=== PATIENT | male | born 1930 | race Caucasian/White ===

== ENCOUNTER → 2018-03-18 12:51 | Outpatient (CLI) | payer MEDICARE, BC | END | disposition home or self-care (01) | LOC: D.CT 12:51 | DX: R51 Headache (principal) ==

== ENCOUNTER 2018-12-22 19:25 | Inpatient (IN) | payer MEDICARE, BC ==
[2018-12-22] MEDS ORDERED: GLUCOPHAGE500 MG (19:36)
[2018-12-22] MEDS ORDERED: GLIMEPIRIDE1 MG (19:36)
[2018-12-22 19:59] LABS: BASOPHILS 0.5 % (0-2); EOSINOPHILS 4.7 % (0-7); HEMATOCRIT 39.1 % (42.0-54.0); HEMOGLOBIN 13.2 g/dL (13.5-17.5); IMMATURE GRANULOCYTES 0.3 % (0-5); LYMPHOCYTES 24.4 % (15-50); MCHC 33.8 g/dL (31.0-37.0); MCV 88.9 fL (80.0-100.0); MEAN PLATELET VOLUME 10.4 fL (7.4-10.4); MONOCYTES 5.3 % (2-11); NEUTROPHILS 64.8 % (40-80); PLATELET COUNT 202 10x3/uL (130-400); RDW 13.3 % (11.5-14.5); WBC 7.4 10x3/uL (4.8-10.8)
[2018-12-22 20:14] LABS: ALBUMIN 4.3 g/dL (3.4-5.0); ALKALINE PHOSPHATASE 107 U/L (46-116); ALT (SGPT) 26 U/L (10-68); BILIRUBIN - TOTAL 0.51 mg/dL (0.2-1.3); CALC OSMOLALITY 281 mosm/kg (275-300); CALCIUM 8.9 mg/dL (8.5-10.1); CARBON DIOXIDE 22.7 mmol/L (21.0-32.0); CHLORIDE - SERUM 100 mmol/L (98-107); CREATININE - SERUM 1.4 mg/dL (0.6-1.3); GLUCOSE 203 mg/dL (74-106); POTASSIUM - SERUM 4.6 mmol/L (3.5-5.1); SODIUM 136 mmol/L (136-145); UREA NITROGEN 25 mg/dL (7-18); eGFR NON AFRICAN AMERICAN 51 mL/min (90-120)
[2018-12-22 20:23] LABS: APPEARANCE CLEAR (CLEAR); BILIRUBIN NEGATIVE (NEGATIVE); COLOR YELLOW (YELLOW); GLUCOSE NEGATIVE (NEGATIVE); KETONE NEGATIVE (NEGATIVE); NITRITE NEGATIVE (NEGATIVE); PROTEIN NEGATIVE (NEGATIVE); UROBILINOGEN NORMAL (NORMAL)
[2018-12-22 20:26] LABS: CKMB 1.7 U/L (0.0-3.6); CREATINE KINASE 144 UL (21-232); PRO BNP 334 pg/mL (0-450); TROPONIN-I 0.052 ng/mL (0.000-0.060)
--- NOTE | 2018-12-22 22:34 | NUR ---
PT AMBULATED TO RESTROOM INDEPENDENTLY.
[2018-12-23 00:34] VITALS: BP 170/81; BMI 23.4
--- NOTE | 2018-12-23 07:35 | NUR ---
INITIAL ROUNDING ON THE PATIENT, HE IS AWAKE AND WATCHING TV IN BED, DRESSED IN PJ'S, CALL LIGHT IN REACH, DENIES PAIN.
[2018-12-23 09:39] VITALS: BP 141/72
[2018-12-23 12:39] LABS: CHOL - HDL RATIO 7.6 ratio (2.3-4.9); CHOLESTEROL, TOTAL 296 mg/dL (0-200); HDL CHOLESTEROL 39 mg/dL (32-96); TRIGLYCERIDE 416 mg/dL (30-200)
[2018-12-23 12:53] VITALS: BP 134/95
[2018-12-23 13:24] VITALS: BMI 23.4
--- NOTE | 2018-12-23 14:26 | NUR ---
Rehab Note- Acut Inpatient prescreen order received. The patient has an appropriate diagnosis for inpatient acute rehab, he is a new admit and is still having an acute workup. Will follow at this time. Thank you for this referral! Moraima Camacho RN Clinical Liaison, [facility] Rehab
[2018-12-23 16:57] VITALS: BP 124/51
--- NOTE | 2018-12-23 19:30 | NUR ---
PT LYING IN BED. CALL LIGHT IN REACH. PT DENIES NEEDS OR PAIN. BED IN LOW SIDE RAILS X2. PT CONFUSED BUT ALERT. LEAVING AT THIS TIME. BED ALARM ON. WILL CONTINUE TO MONITOR.
[2018-12-23 20:17] VITALS: BP 133/63
--- NOTE | 2018-12-23 23:18 | NUR ---
PT RESTING QUIETLY. CALL LIGHT IN REACH. NO SIGNS OF DISTRESS OR PAIN. WCTM
--- NOTE | 2018-12-24 04:34 | NUR ---
ASSISTED PT TO AND FROM BATHROOM. BACK IN BED. CALL LIGHT IN REACH. BED ALARM ON. DENIES FURTHER NEEDS. WCTM
[2018-12-24 04:44] VITALS: BP 146/81
[2018-12-24 07:08] LABS: BASOPHILS 0.3 % (0-2); EOSINOPHILS 3.6 % (0-7); HEMATOCRIT 38.9 % (42.0-54.0); HEMOGLOBIN 13.2 g/dL (13.5-17.5); IMMATURE GRANULOCYTES 0.3 % (0-5); LYMPHOCYTES 31.1 % (15-50); MCH 29.8 pg (26.0-34.0); MCHC 33.9 g/dL (31.0-37.0); MCV 87.8 fL (80.0-100.0); MEAN PLATELET VOLUME 10.2 fL (7.4-10.4); NEUTROPHILS 55.7 % (40-80); PLATELET COUNT 195 10x3/uL (130-400); RBC 4.43 10x6/uL (4.20-6.10); RDW 13.3 % (11.5-14.5); WBC 6.4 10x3/uL (4.8-10.8)
[2018-12-24 07:27] LABS: ALBUMIN 3.8 g/dL (3.4-5.0); ANION GAP 13.7 mmol/L (8-16); BILIRUBIN - TOTAL 0.56 mg/dL (0.2-1.3); CALCIUM 9.1 mg/dL (8.5-10.1); CARBON DIOXIDE 24.6 mmol/L (21.0-32.0); CREATININE - SERUM 1.2 mg/dL (0.6-1.3); POTASSIUM - SERUM 4.3 mmol/L (3.5-5.1)
--- NOTE | 2018-12-24 07:42 | NUR ---
PATIENT AWAKE AND WATCHING TV, CALL LIGHT IN HIS HAND, HE DENIES PAIN, NURO CHECK SHOWS NO CHANGES FROM YESTERDAY
[2018-12-24 08:00] VITALS: BP 164/80
[2018-12-24 12:00] VITALS: BP 153/82
--- NOTE | 2018-12-24 15:41 | NUR ---
THE PATIENT AND HIS EX STATE THE DOCTOR TOLD HIM HE COULD GO HOME. THE PATINT HAS GOTTEN DRESSED AND REMOVED HIS TELE MONITOR. NO ORDERS TO DISCHARGE AT THIS TIME.
--- NOTE | 2018-12-24 16:11 | NUR ---
Rehab Note- Per OT & PT evaluations the patient is too functional for inpatient acute rehab & is requesting to go home. SPoke with CHRISTIN Chambers. Thank you for this referral! Moraima Camacho RN Clinical Liaison, [facility] Rehab
[2018-12-24] MEDS ORDERED: LIPITOR40 MG PO ×2 (16:44→17:41)
[2018-12-24] MEDS ORDERED: GEMFIBROZIL600 MG PO ×2 (16:46→17:41)
[2018-12-24] MEDS ORDERED: LIPITOR20 MG PO (16:46)
[2018-12-24] MEDS ORDERED: ASPIRIN325 MG PO (17:41)
--- NOTE | 2018-12-25 07:29 | MORECARE ---
CASE MANAGEMENT DISCHARGE SUMMARY PATIENT: MICHELLE PATRICK UNIT: [id number] ADM DATE: 12/23/18 AGE: 88 : 32 SEX: M ROOM/BED: D.1213 AUTHOR: VIJAYA PERDOMO PHYSICIAN: REFERRING PHYSICIAN: AGUSTIN CHAPMAN MD DATE OF SERVICE: 12/25/18 Discharge Plan Patient Name: MICHELLE PATRICK [facility] [facility] 1930 Planned Disposition: Anticipated Discharge Date: Discharge Date: 12/24/2018 Expected LOS: Initial Reviewer: [email or web address] Initial Review Date: 12/23/2018 Generated: 12/25/18 8:29 am Patient Name: MICHELLE PATRICK Page [phone] at 0729 All edits/amendments must be made on the electronic document DICTATION DATE: 12/25/18727 CELL INSTALLER: KIM 12/25/18727 RPT#: [id number] DC DATE:12/24/18 STATUS: DIS IN [facility] [address] [place] [address] END OF REPORT
--- NOTE | 2018-12-27 13:02 | EC ---
PATIENT:MICHELLE PATRICK DATE OF SERVICE: 12/23/18 SEX: M MEDICAL RECORD: [id number] DATE OF : 34 LOCATION:D.M3 D.121 AGE OF PATIENT: 88 ADMISSION DATE: 12/23/18 REFERRING PHYSICIAN: INTERPRETING PHYSICIAN: DYANA CASTILLO MD ECHOCARDIOGRAM REPORT ECHO CHARGES 4 ECHO COMPLETE Date: 12/23/18 CLINICAL DIAGNOSIS: CVA ECHOCARDIOGRAPHIC MEASUREMENTS (adult normal given) AC root (d.<3.7cm) 3.8 cm LV Septum d (<1.2 cm> 1.3 cm Valve Excursion 1.4 cm LV Septum (systole) 1.5 cm Left Atria (s.<4.0cm> 3.8 cm LVPW d(<1.2cm) 1.4 cm RV (d.<2.3cm) 3.8 cm LVPW (sytole) 1.5 cm LV diastole(<5.6CM) 3.7 cm MV E-F(>70mm/sec) cm LV systole 2.3 cm LVOT Diameter 1.6 cm MV exc.(>10mm) cm Est.ejection fraction (50-75%) % DOPPLER: LVIT cm/sec A 70.0 cm/sec E 121 cm/sec LA cm/sec RVSP 25 mmHg LVOT 124 cm/sec AOP1/2T m/s Asc. Ao 162 cm/sec RVOT cm/sec RA cm/sec PA cm/sec AV Gradient Peak 10.50mmHg AV Mean 6.34 mmHg AV Area 1.6 cm MV Gradient Peak 8.03 mmHg MV Mean 3.87 mmHg MV Area cm COMMENTS: Fire Safety Manager: 2 AFUA MCKNIGHT Wagon Driver Salesperson: 3 Dr. Castro TAPE# PACS Pericardial Effusion N DATE OF SERVICE: Adequate 2D, color flow, Spectral Doppler, and M-Mode. LVH is present. LV internal dimensions are normal. Wall motion is normal. EF is greater than or equal to 55%. Aortic valve sclerosis without evidence of stenosis on Doppler interrogation. Left atrium is normal at 3.8 cm. Mitral valve shows no prolapse. Trace MR. Right-sided chambers grossly normal. Trace TR. TRANSINT:[id number] Voice Confirmation ID: [id number] DOCUMENT ID: [id number] ECHOCARDIOGRAM REPORT [id number] MICHELLE PATRICK DYANA CASTILLO MD at 1302 CC: [id number] DICTATION DATE: 12/24/1828 UPHOLSTERY BUNDLER: 12/24/18 1050 DIS IN 12/24/18 [id number] [place] [address]
--- NOTE | 2018-12-31 16:41 | CN ---
PATIENT NAME:MICHELLE TEJEDA MEDICAL RECORD: [id number] : 34 LOCATION:[facility] D.1213 ADMIT DATE: 12/23/18 ACCOUNT: [id number] CONSULTING PHYSICIAN: ROSETTA RAMOS MD REFERRING PHYSICIAN: AGUSTIN CHAPMAN MD DATE OF CONSULTATION: 12/24/2018 CARDIOLOGY CONSULT DIAGNOSES: 1. Tachycardia. 2. Cerebrovascular accident. 3. Diabetes. HISTORY OF PRESENT ILLNESS: Mr. Tejeda presents with CVA symptomatology. His initial vitals were with a heart rate of 160 that was not documented anywhere else. Since then, he has not had any further episodes of tachycardia or dysrhythmia. His heart rate has been in the 70s. He did not feel any palpitations. Denies any chest pain or chest discomfort. Echocardiogram is basically normal. EKG is as well normal. PHYSICAL EXAMINATION: GENERAL APPEARANCE: Well-nourished, well-developed, appears stated age. Level of distress, comfortable. PSYCHIATRIC: Mental status, alert, normal affect. Orientation, oriented to time, place and person. EYES: Lids and conjunctiva, noninjected. No discharge, no pallor. ENT: Lips, teeth, gums, normal dentition. Oropharynx, no cyanosis, no pallor. NECK: Carotid arteries, bilateral normal upstroke, no bruits, no thrills. JUGULAR VEINS: No jugular venous pressure or distention. CERVICAL LYMPH NODES: Nontender, nonenlarged. THYROID: Not enlarged. Nontender. No nodules. LUNGS: Respiratory effort, unlabored. CHEST: Normal curvature. No thoracic deformity. No chest wall tenderness. Percussion, resonant. Auscultation, clear. No wheezes, no rales, no rhonchi. CARDIOVASCULAR: Precordial exam, nondisplaced. No heaves or pericardial thrills. Rate and rhythm, regular. Heart sounds, normal S1, normal S2. No S3, no gallop, no rub. Systolic murmur, not heard. Diastolic murmur, not heard. EXTREMITIES: No cyanosis, no edema. Peripheral pulses, full and equal in all extremities, except as noted. No bruits appreciated. ABDOMEN: Soft, nondistended. Normal aorta. No bruit. Nontender. No masses. Liver, nontender, no hepatomegaly. Spleen, nontender, no splenomegaly. MUSCULOSKELETAL: No joint tenderness. No joint swelling. No erythema. NEUROLOGICAL: Normal gait, normal strength, normal tone. SKIN: Warm and dry. OVERALL IMPRESSION: Tachycardia on lateral recordings, most likely this is incorrect. No reason to believe if she has had any further episodes of dysrhythmia or tachycardia. At this time, no other cardiac workup or treatment is necessary. TRANSINT:[id number] Voice Confirmation ID: [id number] DOCUMENT ID: [id number] CONSULT REPORT [id number] MICHELLE TEJEDA, ROSETTA DELVALLE at 1641 CC: [id number] DICTATION DATE: 12/24/18 1359 COMMUNICATIONS PROGRAMMER: 12/24/18 1417 DIS IN 12/24/18 [address] [place] [address]
== END 2018-12-24 18:48 | disposition home or self-care (01) | DRG 64 ==
LOC: D.ER 19:25 → D.M3 23:53 → OBSVTIME 23:53 → D.M3 12-23 11:53
PROVIDERS: Family Medicine; ADMIT Family Medicine Adult Medicine; ATTEND Family Medicine Adult Medicine
DX: I63.9 Cerebral infarction, unspecified (principal); G93.41 Metabolic encephalopathy; E11.65 Type 2 diabetes mellitus with hyperglycemia; R00.0 Tachycardia, unspecified; R40.2363 Coma scale, best motor response, obeys commands, at hospital admission; R40.2143 Coma scale, eyes open, spontaneous, at hospital admission; R40.2243 Coma scale, best verbal response, confused conversation, at hospital admission; Z86.73 Personal history of transient ischemic attack (TIA), and cerebral infarction without residual deficits

== ENCOUNTER 2021-01-25 22:12 | Inpatient (IN) | payer MEDICARE, BC ==
[~2021-01-25] VITALS: Ht 180.3 cm; Wt 78.0 kg
[~2021-01-25 22:12] MED LIST: ASPIRIN325 MG PO; GEMFIBROZIL600 MG PO; GLIMEPIRIDE1 MG PO; GLUCOPHAGE500 MG PO; LIPITOR20 MG PO; LIPITOR40 MG PO
[2021-01-25 22:30] LABS: BASOPHILS 0.5 % (0-2); EOSINOPHILS 0.7 % (0-7); HEMATOCRIT 37.8 % (42.0-54.0); HEMOGLOBIN 12.7 g/dL (13.5-17.5); LYMPHOCYTES 11.4 % (15-50); MCHC 33.5 g/dL (31.0-37.0); MCV 89.7 fL (80.0-100.0); MEAN PLATELET VOLUME 8.7 fL (7.4-10.4); MONOCYTES 5.8 % (2-11); NEUTROPHILS 81.6 % (40-80); PLATELET COUNT 212 10x3/uL (130-400); RBC 4.22 10x6/uL (4.20-6.10); RDW 14.1 % (11.5-14.5)
[2021-01-25 22:39] LABS: APTT 25.6 SECONDS (22.8-39.4); INR 1.16 (0.85-1.17); PROTIME 13.7 SECONDS (11.6-15.0)
[2021-01-25 22:41] LABS: CALC OSMOLALITY 287 mosm/kg (275-300); CALCIUM 9.1 mg/dL (8.5-10.1); CARBON DIOXIDE 25.2 mmol/L (21.0-32.0); CHLORIDE - SERUM 102 mmol/L (98-107); CREATININE - SERUM 1.3 mg/dL (0.6-1.3); GLUCOSE 174 mg/dL (74-106); SODIUM 139 mmol/L (136-145); UREA NITROGEN 30 mg/dL (7-18); eGFR NON AFRICAN AMERICAN 55 mL/min (90-120)
[2021-01-25 23:00] LABS: ALBUMIN 4.5 g/dL (3.4-5.0); ALKALINE PHOSPHATASE 78 U/L (30-120); ALT (SGPT) 23 U/L (10-68); BILIRUBIN - TOTAL 0.53 mg/dL (0.2-1.3); CKMB 3.3 U/L (0.0-3.6); CREATINE KINASE 250 UL (21-232); MAGNESIUM - SERUM 1.7 mg/dL (1.8-2.4)
[2021-01-25 23:01] LABS: THYROID STIMULATING HORMONE 51.21 uIU/mL (0.36-3.74)
[2021-01-25 23:19] VITALS: BP 161/71
[2021-01-26] VITALS (11 sets, daily range): BP systolic 130–171; BP diastolic 67–114; BMI 24.0
--- NOTE | 2021-01-26 00:28 | NUR ---
C COLLAR REMOVED. PT PROVIDED PILLOW AND BLANKET FOR COMFORT. PT DENIES NEEDS AT THIS TIME. PT DAUGHTER AT BEDSIDE.
--- NOTE | 2021-01-26 03:30 | NUR ---
URINATED 400CC URINE IN URINAL WITH MINIMAL ASSIST. WEAKNESS IN R HAND WITH POOR MOTOR SKILLS NOTED.
--- NOTE | 2021-01-26 05:45 | NUR ---
PATIENT TOLD VISITOR "I LOVE YOU". SPEECH MORE CLEAR. STILL SOME WORD SALAD AT TIMES BUT IMPROVING.
--- NOTE | 2021-01-26 06:00 | NUR ---
PO MEDS HELD DUE TO NPO FOR SPEECH EVAL
[2021-01-26 07:08] LABS: BASOPHILS 0.7 % (0-2); EOSINOPHILS 0.6 % (0-7); HEMATOCRIT 36.3 % (42.0-54.0); HEMOGLOBIN 12.2 g/dL (13.5-17.5); LYMPHOCYTES 19.1 % (15-50); MCHC 33.5 g/dL (31.0-37.0); MCV 89.4 fL (80.0-100.0); MEAN PLATELET VOLUME 8.5 fL (7.4-10.4); MONOCYTES 8.8 % (2-11); NEUTROPHILS 70.8 % (40-80); PLATELET COUNT 214 10x3/uL (130-400); RBC 4.07 10x6/uL (4.20-6.10); WBC 8.9 10x3/uL (4.8-10.8)
[2021-01-26 07:16] LABS: ANION GAP 11.8 mmol/L (8-16); CALCIUM 8.9 mg/dL (8.5-10.1); CREATININE - SERUM 1.1 mg/dL (0.6-1.3); MAGNESIUM - SERUM 1.8 mg/dL (1.8-2.4); PHOSPHOROUS 3.1 mg/dL (2.5-4.9); POTASSIUM - SERUM 3.8 mmol/L (3.5-5.1)
[2021-01-26] MEDS ORDERED: PROPRANOLOL HCL20 MG PO (08:42)
--- NOTE | 2021-01-26 14:28 | NUR ---
DR LANGFORD MADE AWARE OF IR CONSULT IN REGARDS TO POSSIBLE STENT PLACEMENT ORDERED BY DR HENRY [id number] 01/26
[2021-01-27 00:45] VITALS: BP 157/72
[2021-01-27 04:37] VITALS: BP 154/70
[2021-01-27 07:10] LABS: ANION GAP 13.5 mmol/L (8-16); BILIRUBIN - TOTAL 0.96 mg/dL (0.2-1.3); CALCIUM 8.7 mg/dL (8.5-10.1); CARBON DIOXIDE 24.3 mmol/L (21.0-32.0); CREATININE - SERUM 1.2 mg/dL (0.6-1.3); POTASSIUM - SERUM 3.8 mmol/L (3.5-5.1); PROTEIN - SERUM 7.4 g/dL (6.4-8.2)
[2021-01-27 07:13] LABS: BASOPHILS 0.7 % (0-2); EOSINOPHILS 1.5 % (0-7); HEMATOCRIT 36.3 % (42.0-54.0); HEMOGLOBIN 12.3 g/dL (13.5-17.5); LYMPHOCYTES 20.3 % (15-50); MCHC 33.8 g/dL (31.0-37.0); MCV 88.9 fL (80.0-100.0); MEAN PLATELET VOLUME 8.7 fL (7.4-10.4); MONOCYTES 10.2 % (2-11); NEUTROPHILS 67.3 % (40-80); PLATELET COUNT 218 10x3/uL (130-400); RBC 4.08 10x6/uL (4.20-6.10); RDW 14.1 % (11.5-14.5); WBC 7.5 10x3/uL (4.8-10.8)
[2021-01-27 09:11] VITALS: BP 166/88
[2021-01-27 16:32] VITALS: BP 156/70
--- NOTE | 2021-01-27 21:01 | NUR ---
PATIENT RUNNING UNCONTROLLED AFIB ON THE USED CAR LOT PORTER, 130S-150S. RECIEVED ORDER FOR CARDIO CONSULT. CALLED INTO [facility]. RECIEVED ORDER FOR BETAPACE 120MG BID. FIRST DOSE ADMINISTERED NOW. CURRENTLY ON BRILINTA.
[2021-01-27 22:06] VITALS: BP 140/83
--- NOTE | 2021-01-28 01:52 | NUR ---
PATIENT PULLED OUT PIV TO LEFT AC. RESITED TO RIGHT FOREARM, 20G. WRAPPED WITH ESTHER BANDAGE.
[2021-01-28 06:32] LABS: BASOPHILS 0.6 % (0-2); EOSINOPHILS 2.3 % (0-7); HEMATOCRIT 40.2 % (42.0-54.0); HEMOGLOBIN 13.3 g/dL (13.5-17.5); LYMPHOCYTES 21.2 % (15-50); MCH 29.3 pg (26.0-34.0); MCHC 33.1 g/dL (31.0-37.0); MCV 88.6 fL (80.0-100.0); MEAN PLATELET VOLUME 8.4 fL (7.4-10.4); NEUTROPHILS 64.9 % (40-80); PLATELET COUNT 261 10x3/uL (130-400); RBC 4.53 10x6/uL (4.20-6.10); RDW 13.9 % (11.5-14.5); WBC 7.7 10x3/uL (4.8-10.8)
[2021-01-28 06:48] LABS: ALBUMIN 3.9 g/dL (3.4-5.0); ALKALINE PHOSPHATASE 68 U/L (30-120); ALT (SGPT) 23 U/L (10-68); BILIRUBIN - TOTAL 1.15 mg/dL (0.2-1.3); CALC OSMOLALITY 269 mosm/kg (275-300); CHLORIDE - SERUM 101 mmol/L (98-107); GLUCOSE 158 mg/dL (74-106); PROTEIN - SERUM 7.7 g/dL (6.4-8.2); SODIUM 133 mmol/L (136-145); UREA NITROGEN 15 mg/dL (7-18); eGFR NON AFRICAN AMERICAN 75 mL/min (90-120)
--- NOTE | 2021-01-28 07:15 | NUR ---
PT CO OF DIZZINESS. VS TAKEN AND THEY WERE WNL. CL IN REACH. BED ALARM ON. DAUGHTER IN LAW OBIE AT THE BEDSIDE. THEY REALLY WANT TO GET TO REHAB TODAY. WCTM
[2021-01-28 07:58] VITALS: BP 146/82
--- NOTE | 2021-01-28 08:32 | NUR ---
REHAB PRESCREEN RECEIVED. WE WILL WORK ON PATIENT AND IF HE MEETS CRITERIA AND WANTS TO COME, WE WILL SUBMIT TO [facility] FOR AUTH. THANK YOU FOR THIS REFERRAL. CRUZ GONZALEZ RN CLINICAL LIAISON, INPATIENT REHAB.
--- NOTE | 2021-01-28 10:55 | NUR ---
PT ASSISTED WITH SHOWER. FRESH LINENS PROVIDED. SPEECH SEEMS TO BE GETTING BETTER SLIGHTLY FROM THE EXPRESSIVE APHASIA. CL IN REACH. WCTM. DIET CHANGED TO DIABETIC. BED ALARM ON. WCTM
[2021-01-28 12:11] VITALS: BP 135/66
--- NOTE | 2021-01-28 12:26 | NUR ---
TELEMETRY CALLED TO SAY PT HAS CONVERTED TO SINUS RYTHYM.
[2021-01-28 15:18] VITALS: Ht 180.3 cm; Wt 78.0 kg
[2021-01-28 15:32] VITALS: BP 112/57
--- NOTE | 2021-01-28 16:30 | NUR ---
OT NOTE: PT COMPLETED BED MOBILITY WITH MIN A. PT COMPLETED FACE HYGIENE WITH MIN A. [id number] THANK YOU,ARACELI NI
--- NOTE | 2021-01-28 16:43 | NUR ---
INFORMATION SENT TO [facility] FOR AUTHORIZATION FOR INPATIENT REHAB WITH REFERENCE #[id number]. CRUZ GONZALEZ RN CLINICAL LIAISON, INPATIENT REHAB.
--- NOTE | 2021-01-28 18:05 | NUR ---
PT GROWING MORE AGITATED. DIFFICULTY UNDERSTANDING EX AND ME. WILL TRY AND GET SOMETHING TO HELP CALM HIM. PT GOT UP OUT OF CHAIR. WAS AGGRAVATED WANTING THE "PILL OVER HERE." TALKING ABOUT THE IV POLE WANTING IT MOVED TO THE SIDE. WE TRIED TO GET HIM SETTLED AND SAT DOWN BEFORE WE MOVED THE IV POLE. HE REFUSED. WE MOVED THE IV POLE TO THE SIDE HE WANTED AND HE SAT DOWN. I DID SALINE LOCK HIS IV TO KEEP IT SAFE. BED ALARM ON. EX IN ROOM. SON JUST LEFT. 1819. TM
[2021-01-28 20:00] VITALS: BP 123/51
[2021-01-29 04:00] VITALS: BP 154/67
[2021-01-29 05:49] LABS: BASOPHILS 0.9 % (0-2); EOSINOPHILS 4.7 % (0-7); HEMATOCRIT 35.2 % (42.0-54.0); HEMOGLOBIN 11.9 g/dL (13.5-17.5); LYMPHOCYTES 27.1 % (15-50); MCH 30.1 pg (26.0-34.0); MCHC 33.9 g/dL (31.0-37.0); MCV 88.8 fL (80.0-100.0); MEAN PLATELET VOLUME 8.5 fL (7.4-10.4); MONOCYTES 10.6 % (2-11); NEUTROPHILS 56.7 % (40-80); PLATELET COUNT 232 10x3/uL (130-400); RBC 3.96 10x6/uL (4.20-6.10); RDW 14.3 % (11.5-14.5); WBC 7.6 10x3/uL (4.8-10.8)
[2021-01-29 06:38] LABS: ALBUMIN 3.7 g/dL (3.4-5.0); ANION GAP 17.5 mmol/L (8-16); BILIRUBIN - TOTAL 0.99 mg/dL (0.2-1.3); CALCIUM 8.7 mg/dL (8.5-10.1); CARBON DIOXIDE 21.3 mmol/L (21.0-32.0); POTASSIUM - SERUM 3.8 mmol/L (3.5-5.1); PROTEIN - SERUM 7.3 g/dL (6.4-8.2)
[2021-01-29 06:39] LABS: CREATININE - SERUM 1.3 mg/dL (0.6-1.3)
[2021-01-29 08:45] VITALS: BP 141/82
--- NOTE | 2021-01-29 15:22 | NUR ---
OT NOTE: PT COMPLETED BED MOBILITY WITH CGA-SPV. PT COMPLETED ADL MOB WITH SQUADRON WORKER. PT COMPLETED DYNAMIC STANDING WITH SQUADRON WORKER-CGA. PT COMPLETED CHRISTIAN GOWN WITH MINIMAL ASSISTANCE. PT REQUIRED CUES FOR ATTENTION TO TASK. PT COMPLETED TOILETING WITH CGA. TOILET HYGIENE REQUIRED MIN A. CL IN REACH..ALARM ON. [phone] PEGGY CAZARES COTA
[2021-01-29 20:00] VITALS: BP 147/63
[2021-01-30] VITALS: BP 149/78
[2021-01-30 04:00] VITALS: BP 168/78
[2021-01-30 06:20] LABS: BASOPHILS 0.9 % (0-2); EOSINOPHILS 5.9 % (0-7); HEMATOCRIT 34.8 % (42.0-54.0); HEMOGLOBIN 11.7 g/dL (13.5-17.5); LYMPHOCYTES 31.3 % (15-50); MCH 30.1 pg (26.0-34.0); MCHC 33.7 g/dL (31.0-37.0); MCV 89.5 fL (80.0-100.0); MEAN PLATELET VOLUME 8.5 fL (7.4-10.4); MONOCYTES 9.8 % (2-11); NEUTROPHILS 52.1 % (40-80); PLATELET COUNT 234 10x3/uL (130-400); RBC 3.89 10x6/uL (4.20-6.10); RDW 14.3 % (11.5-14.5); WBC 6.8 10x3/uL (4.8-10.8)
[2021-01-30 06:34] LABS: ALBUMIN 3.5 g/dL (3.4-5.0); ANION GAP 15.9 mmol/L (8-16); BILIRUBIN - TOTAL 0.8 mg/dL (0.2-1.3); CALCIUM 8.5 mg/dL (8.5-10.1); CARBON DIOXIDE 21.8 mmol/L (21.0-32.0); CREATININE - SERUM 1.2 mg/dL (0.6-1.3); POTASSIUM - SERUM 3.7 mmol/L (3.5-5.1); PROTEIN - SERUM 7.1 g/dL (6.4-8.2)
[2021-01-30 08:57] VITALS: BP 168/80
[2021-01-30 12:22] VITALS: BP 174/73
--- NOTE | 2021-01-30 14:21 | NUR ---
I have reviewed this patient and I concur with the Shift Assessment completed by the Licensed Practical Nurse today this shift.
--- NOTE | 2021-01-30 15:46 | NUR ---
I HAVE SPOKEN WITH EDMUND TWICE TODAY TO FIND OUT STATUS OF PATIENTS AUTH FOR INPATIENT REHAB. THIS AM SHE WANTED MORE INFORMATION TO WHY I FELT THE PATIENT NEEDED INPATIENT REHAB AND SHE WAS GOING TO PRESENT IT TO THE SPRAYER OPERATOR. AROUND 1402 I SPOKE WITH HER AGAIN AND SHE STATED THE SPRAYER OPERATOR STILL HAS THE CHART AND HAS NOT MADE A DECISION. I WILL FOLLOW UP IN THE MORNING IF I DO NOT HEAR ANYTHING BEFORE I LEAVE TODAY. CRUZ GONZALEZ RN CLINICAL LIAISON, INPATIENT REHAB.
--- NOTE | 2021-01-30 15:59 | NUR ---
JUST GOT OFF THE PHONE WITH EDMUND WITH [facility] [facility] (FOR [facility]). PATIENT HAS BEEN APPROVED TO MOVE TO INPATIENT REHAB ON 01/31/21 WITH AUTH #[id number]. I HAVE NOTIFIED OBIE PRICE RN CM OF THIS DECISION AND THEY CAN WORK ON GETTING DISCHARGE ORDERS FOR IN THE AM. THANK YOU AGAIN FOR THIS REFERRAL. CRUZ GONZALEZ RN CLINICAL LIAISON, INPATIENT REHAB.
[2021-01-30 17:08] VITALS: BP 179/85
--- NOTE | 2021-01-30 17:13 | NUR ---
OT NOTE: AMB WITH PT TO BATHROOM WITH MIN ASSIST FROM CHAIR TO TOILET. TOILETING WITH MIN ASSIST; BACK TO CHAIR WITH MIN ASSIST. PT GETTING VERY FRUSTRATED WITH ATTEMPTS TO VERBALIZE NEEDS. PRACTICED WRITTING AND DRAWING ACT BUT PT BECOMING MORE FRUSTRATED. REQUIRES FREQ REST BREAKS FOR THESE ACT OBIE RUBIN, OTR/L 1130-12
--- NOTE | 2021-01-30 19:30 | NUR ---
PT IN BED, EYES CLOSED. RESP EVEN AND UNLABORED, NO DISTRESS NOTED, CL IN REACH, SR UP X 2.
[2021-01-30 20:00] VITALS: BP 175/94
[2021-01-31 00:19] VITALS: BP 125/50
[2021-01-31 03:47] VITALS: BP 167/85
--- NOTE | 2021-01-31 05:11 | NUR ---
I have reviewed this patient and I concur with the Shift Assessment completed by the Licensed Practical Nurse today this shift.
[2021-01-31 06:12] LABS: EOSINOPHILS 6.9 % (0-7); HEMATOCRIT 37.5 % (42.0-54.0); HEMOGLOBIN 12.9 g/dL (13.5-17.5); LYMPHOCYTES 26.7 % (15-50); MCH 30.2 pg (26.0-34.0); MCHC 34.3 g/dL (31.0-37.0); MCV 88.2 fL (80.0-100.0); MEAN PLATELET VOLUME 8.7 fL (7.4-10.4); MONOCYTES 10.7 % (2-11); NEUTROPHILS 54.7 % (40-80); PLATELET COUNT 253 10x3/uL (130-400); RBC 4.26 10x6/uL (4.20-6.10); WBC 6.3 10x3/uL (4.8-10.8)
[2021-01-31 06:40] LABS: ALBUMIN 3.7 g/dL (3.4-5.0); BILIRUBIN - TOTAL 0.96 mg/dL (0.2-1.3); CARBON DIOXIDE 22.6 mmol/L (21.0-32.0); CREATININE - SERUM 1.2 mg/dL (0.6-1.3); POTASSIUM - SERUM 3.6 mmol/L (3.5-5.1); PROTEIN - SERUM 7.6 g/dL (6.4-8.2)
--- NOTE | 2021-01-31 08:00 | NUR ---
ALERT AND ORIENTED TO SELF WITH EXPRESSIVE APHASIA NOTED WITH SALAD SPEECH. FALL PRECAUTIONS IN PLACE AND ABLE TO PERFORM ADLS WITH VERBAL AND PHYSICAL CUES. TRIED TO BRUSH HAIR WITH TOOTH BRUSH BUT EASILY REDIRECTED. ENCOURAGED TO USE CALL LIGHT FOR ASSSIT.
[2021-01-31 10:13] VITALS: BP 127/64
[2021-01-31] MEDS ORDERED: Xopenex 0.63 MG INH UPD (10:52)
[2021-01-31] MEDS ORDERED: ASPIRIN81 MG PO (10:52)
[2021-01-31] MEDS ORDERED: ELIQUIS5 MG PO (10:52)
[2021-01-31] MEDS ORDERED: BETAPACE 120 M120 MG PO (10:52)
[2021-01-31] MEDS ORDERED: HUMALOG 30100 UNITS/ SC (10:53)
[2021-01-31] MEDS ORDERED: LEVOTHYROXINE75 MCG PO (10:53)
--- NOTE | 2021-01-31 12:06 | NUR ---
PATIENT HAS BEEN ACCEPTED TO REHAB. HE CAN GO TO ROOM 1112B. I HAVE NOTIFIED THONY SANTOS RN ENAMEL BUFFER AND PEGGY MANTILLA RNTRACTOR TRAILER MOVING VAN DRIVER. THANK YOU AGAIN FOR THIS REFERRAL. CRUZ GONZALEZ RN CLINICAL LIAISON INPATIENT REHAB.
[2021-01-31 13:10] VITALS: BP 175/72
--- NOTE | 2021-01-31 13:37 | NUR ---
ANTONIA BLUE LEFT IN PER ERQUEST OF REHAB STAFF WITH TELEMETRY DISCONTINUED. FAMILY NOTIFIED OF DISCHARGE INSTRUCTIONS AND VERBALIZED UNDERSTANDING WITH REPORT CALLED TO ASTER GAYTAN. DISCHARGED AND STABLE.
[2021-01-31] MEDS ORDERED: PROPRANOLOL HCL10 MG PO (14:18)
--- NOTE | 2021-01-31 16:23 | NUR ---
OT NOTE: PRACTICED BED MOB INCLUDING SUPINE TO SIT WITH MIN ASSIST; SCOOTING TO EOB WITH MIN ASSIST; IN ROOM AMBULATION WITH PROPERTY DISPOSAL MANAGER, HOWEVER, MORE STEADY WITH USE OF WALKER. SINK HYGIENE WITH CGA FOR BALANCE. PT REMAINS FRUSTRATED ABOUT DIFFICULTY WITH COMMUNICATION. ENCOURAGED PT TO SPEAK SLOWLY. OBIE RUBIN, OTR/L 900
--- NOTE | 2021-01-31 17:29 | NUR ---
OT NOTE: PT COMPLETED ADL MOB WITH SBA-CGA. PT CONFUSED AND REQUIRED VERBAL/VISUAL CUES FOR INCREASED SEQUENCING OF TASKS. PT COMPLETED FACE HYGIENE WITH MIN A. PT REQUIRED MOD A FOR ORAL HHYGIENE USING TOOTHETTE. [phone] THANK YOU,ARACELI NI
== END 2021-01-31 13:38 | DRG 64 ==
LOC: D.ER 22:12 → D.MS 23:53 → D.EDHOLD 23:53 → D.MS 01-26 05:48
PROVIDERS: Emergency Medicine; Family Medicine; ADMIT Family Medicine; ATTEND Family Medicine
DX: I63.9 Cerebral infarction, unspecified (principal); G93.6 Cerebral edema; R41.4 Neurologic neglect syndrome; G81.91 Hemiplegia, unspecified affecting right dominant side; E03.9 Hypothyroidism, unspecified; E11.9 Type 2 diabetes mellitus without complications; I10 Essential (primary) hypertension; K21.9 Gastro-esophageal reflux disease without esophagitis; I67.89 Other cerebrovascular disease; R26.9 Unspecified abnormalities of gait and mobility; D50.9 Iron deficiency anemia, unspecified; E83.42 Hypomagnesemia; E78.5 Hyperlipidemia, unspecified; I69.391 Dysphagia following cerebral infarction; I69.320 Aphasia following cerebral infarction; I48.91 Unspecified atrial fibrillation; I69.398 Other sequelae of cerebral infarction; G93.89 Other specified disorders of brain

== ENCOUNTER 2021-01-31 13:28 | Inpatient (IN) | payer MEDICARE, BC ==
[~2021-01-31] VITALS: Ht 180.3 cm; Wt 88.5 kg
[~2021-01-31 13:28] MED LIST changes: +ASPIRIN81 MG PO; +BETAPACE 120 M120 MG PO; +ELIQUIS5 MG PO; +HUMALOG 30100 UNITS/ SC; +LEVOTHYROXINE75 MCG PO; +PROPRANOLOL HCL20 MG PO; +Xopenex 0.63 MG INH UPD
[2021-01-31] MEDS ORDERED: PROPRANOLOL HCL10 MG PO (14:18)
[2021-01-31 14:50] VITALS: BP 182/79; BMI 27.2
--- NOTE | 2021-01-31 16:03 | NUR ---
PATIENT ADMITTS TO REHAB FROM ACUTE FLOOR. HIS PCP IS DR. DHILLON. AT THIS TIME DISCHARGE PLANS ARE UNCERTAIN. WILL CONTINUE TO FOLLOW WITH PATIENT AND WILL ASSIST WITH NEEDS.
--- NOTE | 2021-01-31 19:00 | NUR ---
BEDSIDE REPORT COMPLETE. RECEIVED PT LYING IN BED SUPINE. PT IS ALERT WITH EXPRESSIVE APHASIA AND WORD SALAD. PT IS ABLE TO COMMUNICATE TRYING TO EXPRESSIVE VERBALLY AND NONVERBAL. PT IS VERY PLEASANT BUT IMPULSIVE. RIGHT FOREARM SL WITH DRESSING AROUND IT TO KEEP PT FROM PULLING OUT. VS STABLE. DENIES ANY NEEDS OR PAIN. NO DISTRESS NOTED. CALL LIGHT AND WATER WITHIN REACH. BRIANNA ALARM ON. CPOC
[2021-01-31 21:51] VITALS: BP 134/71
--- NOTE | 2021-02-01 02:35 | NUR ---
PT LYING IN BED ON RIGHT SIDE EYES CLOSED RESTING. RR EVEN AND UNLABORED. CALL LIGHT WITHIN REACH. BRIANNA ALARM ON
[2021-02-01 08:00] VITALS: BP 110/56
--- NOTE | 2021-02-01 08:30 | NUR ---
HE IS ALERT, HIS WORDS DO NOT MAKE SENSE. HE TOOK HIS MEDS WITHOUT ANY PROBLEMS. THE CALL LIGHT IS WITHIN REACH AND THE BED ALARM IS ON.
[2021-02-01 12:55] VITALS: Ht 180.3 cm; Wt 88.5 kg
--- NOTE | 2021-02-01 19:07 | NUR ---
BEDSIDE REPORT COMPLETE. RECEIVED PT SITTING UP IN BED WATCHING TV. ALERT WITH EXPRESSIVE APHASIA/WORD SALAD. RIGHT FOREARM SL PATENT. DRESSING AND SWAB CAP INTACT. DENIES ANY PAIN OR NEEDS. NO DISTRESS NOTED. CALL LIGHT AND WATER WITHIN REACH. BRIANNA ALARM ON. CPOC
[2021-02-01 19:55] VITALS: BP 124/59
--- NOTE | 2021-02-02 03:04 | NUR ---
pt lying in bed on right side eyes closed resting. rr even and unlabored. jennifer alarm on
[2021-02-02 07:00] VITALS: BP 141/69
--- NOTE | 2021-02-02 08:48 | NUR ---
HE IS IN THE GYM WORKING WITH THERAPY. HE TOOK THE MEDICATIONS WITHOUT ANY PROBLEMS.
[2021-02-02 19:00] VITALS: BP 155/70
--- NOTE | 2021-02-02 19:20 | NUR ---
RESTING IN BED ON LEFT SIDE WITH CALL LIGHT WITHIN REACH.
--- NOTE | 2021-02-03 02:15 | NUR ---
ASSISTED TO BATHROOM WITH MIN ASSIST BY GRACY/LUKAS AND BACK TO BED. RESTING QUIETLY
[2021-02-03 07:00] VITALS: BP 126/62
[2021-02-03 19:00] VITALS: BP 156/68
--- NOTE | 2021-02-04 02:35 | NUR ---
lying supine with eyes closed. respirations unlabored.
--- NOTE | 2021-02-04 08:15 | NUR ---
HE IS CALLING TO GO TO THE BATHROOM. HE IS NOT USING THE CORRECT WORDS, BUT WHEN I SAY BATHROOM, HE SAYS "YES" HE HAS THE SCABS ON THE RIGHT SIDE OF HIS HEAD/SCALP. DENIES ANY PAIN. THE CALL LIGHT IS WITHIN REACH AND THE BED ALARM IS ON.
[2021-02-04 08:22] VITALS: BP 121/60
--- NOTE | 2021-02-04 13:30 | NUR ---
Nutrition Follow-up: Diet: Diabetic PO intake: ~67% average x last 6 meals. He ate 75% of breakfast tray and had eaten at least 75% of lunch tray at time of my visit. He reports that his appetite is "good." Last BM: 02/02/21 Wt: 195# (02/01/21) Meds noted: glimepiride, metformin, SSI Labs noted: POC Glu 110(H) Recommend continue current diet. Encouraged PO intake. RD will re-assess 02/08/21.
--- NOTE | 2021-02-04 19:05 | NUR ---
BEDSIDE REPORT COMPLETE. RECEIEVED PT LYING IN BED ALERT. EXPRESSIVE APHASIA AND WORD SALAD NOTED. AT BEDSIDE. PT TV IS NOT TURNING OFF WITH REMOTE, REMOTE HAS BEEN CHANGED OUT WITH NO SUCCESS. THIS NURSE UNPLUGGED POWER CORD FROM BACK OF TV IN ORDER TO MAKE TV TURN OFF. RIGHT FOREARM IV PATENT. DRESSING AND SWAB CAP INTACT. RIGHT FOREHEAD SCAB/SORES DRY INTACT. NO DISTRESS NOTED. CALL LIGHT AND WATER WITHIN REACH. BRIANNA ALARM ON. CPOC
[2021-02-04 20:51] VITALS: BP 133/59
--- NOTE | 2021-02-05 02:34 | NUR ---
PT LYING IN BED ON RIGHT SIDE EYES CLOSED RESTING. RR EVEN AND UNLABORED. BRIANNA ALARM ON
[2021-02-05 08:23] VITALS: BP 138/62
--- NOTE | 2021-02-05 14:07 | NUR ---
CLINICAL UPDATES FAXED TO [facility] REQUESTING MORE DAYS FAXED TO , AUTH. # [id number] WITH FAX CONFORMATION RECIEVED
--- NOTE | 2021-02-05 19:02 | NUR ---
BEDSIDE REPORT COMPLETE. RECEIVED PT LYING IN BED AWAKE. AT BEDSIDE. PT HAS EXPRESSIVE APHASIA WITH WORD SALAD. DENIES ANY PAIN OR NEEDS. NO IV OR OXYGEN NOTED. CALL LIGHT AND WATER WITHIN REACH. BRIANNA ALARM ON. CPOC
[2021-02-05 22:01] VITALS: BP 141/60
--- NOTE | 2021-02-06 02:19 | NUR ---
PT LYING IN BED ON LEFT SIDE EYES CLOSED SLEEPING. RR EVEN AND UNLABORED. BRIANNA ALARM ON
--- NOTE | 2021-02-06 05:35 | NUR ---
PT LYING IN BED ON RIGHT SIDE EYES CLOSED RESTING. RR EVEN AND UNLABORED. NO ACUTE CHANGES IN CONDITION THIS SHIFT. BRIANNA ALARM ON
[2021-02-06 07:28] LABS: BASOPHILS 1.5 % (0-2); EOSINOPHILS 5.8 % (0-7); HEMOGLOBIN 13.7 g/dL (13.5-17.5); LYMPHOCYTES 37.2 % (15-50); MCH 30.2 pg (26.0-34.0); MCHC 34.3 g/dL (31.0-37.0); MEAN PLATELET VOLUME 8.9 fL (7.4-10.4); MONOCYTES 10.4 % (2-11); NEUTROPHILS 45.1 % (40-80); PLATELET COUNT 281 10x3/uL (130-400); RBC 4.55 10x6/uL (4.20-6.10); WBC 6.1 10x3/uL (4.8-10.8)
[2021-02-06 07:49] LABS: ANION GAP 14.9 mmol/L (8-16); CALCIUM 9.8 mg/dL (8.5-10.1); CARBON DIOXIDE 24.4 mmol/L (21.0-32.0); CREATININE - SERUM 1.4 mg/dL (0.6-1.3); POTASSIUM - SERUM 4.3 mmol/L (3.5-5.1)
[2021-02-06 08:06] VITALS: BP 143/61
--- NOTE | 2021-02-06 09:32 | NUR ---
HE IS WORKING WITH THERAPY. HE TOOK HIS MEDICAITONS WITHOUT ANY PROBLEMS. HE IS IMPULSIVE. THE CALL LIGHT IS WITHIN REACH AND THE BED ALARM IS ON.
--- NOTE | 2021-02-06 15:19 | NUR ---
CARE TEAM MEETING: FAMILY ATTENDED THE MEETING. THEIR QUESTIONS AND CONCERNS WERE ADDRESSED. AT THIS TIME FAMILY WOULD LIKE A REFERRAL TO BE FAXED TO [facility] AND [facility] FOR POSSIBLE ADDMISSION. WILL CONTINUE TO FOLLOW WITH PATIENT AND WILL FAX REFERRAL. TENATIVE DC DATE IS 02/12/21.
--- NOTE | 2021-02-06 18:55 | NUR ---
BEDSIDE REPORT COMPLETE. RECEIVED PT LYING IN BED EYES CLOSED RESTING. EASILY AROUSED WITH STIMULI. DENIES ANY NEEDS OR PAIN. PT IS APHASIC EXPRESSIVELY WITH WORD SALAD NOTED. NO IV OR OXYGEN NOTED. NO DISTRESS NOTED. CALL LIGHT AND WATER WITHIN REACH. BRIANNA ALARM ON. CPOC
[2021-02-06 19:33] VITALS: BP 133/65
--- NOTE | 2021-02-07 05:21 | NUR ---
PT LYING IN BED ON LEFT SIDE EYES CLOSED RESTING. RR EVEN AND UNLABORED. NO ACUTE CHANGES IN CONDITION THIS SHIFT. CALL LIGHT AND WATER WITHIN REACH. BRIANNA ALARM ON
--- NOTE | 2021-02-07 07:45 | NUR ---
PT RESTING IN BED WITH EYES OPEN CALL LIGHT IN REACH WILL MONITER
[2021-02-07 08:09] VITALS: BP 106/53
--- NOTE | 2021-02-07 12:00 | NUR ---
I have reviewed this patient and I concur with the Shift Assessment completed by the Licensed Practical Nurse today this shift.
--- NOTE | 2021-02-07 12:00 | NUR ---
I have reviewed this patient and I concur with the Shift Assessment completed by the Licensed Practical Nurse today this shift.
--- NOTE | 2021-02-07 17:21 | NUR ---
PT RESTING IN BED WITH EYES OPEN CALL LIGHT IN REACH WILL MONITER
--- NOTE | 2021-02-07 19:13 | NUR ---
PM ROUNDS MADE, PT RESTING WITH EYES CLOSED, RESP QUIET, NO DISTRESS NOTED, LEFT UNDISTURBED AT THIS TIME, FALL PRECAUTIONS IN PLACE
--- NOTE | 2021-02-07 20:43 | NUR ---
ASSESSMENT PER FLOW SHEET, PT HAS WORD SALAD, HEALING SORES TO RIGHT SIDE OF HEAD, FRESH H20 SERVED, ADM 2100 MEDS PER MD ORDERS, SEE EMAR, PT DENIES FURTHER NEEDS, FALL PRECAUTIONS IN PLACE
[2021-02-07 22:00] VITALS: BP 127/58
--- NOTE | 2021-02-07 22:30 | NUR ---
PT RESTING WITH EYES CLOSED, RESP QUIET, NO DISTRESS NOTED, LEFT UNDISTURBED AT THIS TIME, FALL PRECAUTIONS IN PLACE
--- NOTE | 2021-02-08 | NUR ---
PT RESTING WITH EYES CLOSED, RESP QUIET, NO DISTRESS NOTED, LEFT UNDISTURBED AT THIS TIME, FALL PRECAUTIONS IN PLACE
--- NOTE | 2021-02-08 02:18 | NUR ---
PT RESTING WITH EYES CLOSED, RESP QUIET, NO DISTRESS NOTED, LEFT UNDISTURBED AT THIS TIME, FALL PRECAUTIONS IN PLACE
--- NOTE | 2021-02-08 04:00 | NUR ---
PT RESTING WITH EYES CLOSED, RESP QUIET, NO DISTRESS NOTED, LEFT UNDISTURBED AT THIS TIME
[2021-02-08 07:17] LABS: BASOPHILS 2.3 % (0-2); EOSINOPHILS 6.1 % (0-7); HEMATOCRIT 40.2 % (42.0-54.0); HEMOGLOBIN 13.6 g/dL (13.5-17.5); LYMPHOCYTES 33.7 % (15-50); MCH 29.8 pg (26.0-34.0); MCHC 33.8 g/dL (31.0-37.0); MCV 88.2 fL (80.0-100.0); MEAN PLATELET VOLUME 8.6 fL (7.4-10.4); MONOCYTES 9.1 % (2-11); NEUTROPHILS 48.8 % (40-80); PLATELET COUNT 301 10x3/uL (130-400); RBC 4.56 10x6/uL (4.20-6.10); RDW 13.9 % (11.5-14.5); WBC 6.1 10x3/uL (4.8-10.8)
--- NOTE | 2021-02-08 07:32 | NUR ---
PT RESTING IN BED WITH EYES OPEN CALL LIGHT IN REACH NO PROBLEMS WILL MONITER
[2021-02-08 07:54] LABS: ANION GAP 17.5 mmol/L (8-16); CALCIUM 9.7 mg/dL (8.5-10.1); CARBON DIOXIDE 21.7 mmol/L (21.0-32.0); CREATININE - SERUM 1.4 mg/dL (0.6-1.3); POTASSIUM - SERUM 4.2 mmol/L (3.5-5.1)
[2021-02-08 08:00] VITALS: BP 135/63
--- NOTE | 2021-02-08 13:31 | NUR ---
Nutrition Re-Assessment Diet: Diabetic PO intake: ~83% average x last 6 meals, ate 100% x 3 meals yesterday. states that patient does not eat well at dinner time because he is not used to eating 3 meals a day. She states that his appetite is good. Last BM: 02/02/21 Wt: 195# (02/01/21) Meds reviewed Labs noted: Glu 126(H) Estimated nutrition needs: 1950-2350kcal (25-30kcal/kg IBW), 78-94gms protein (1-1.2gms/kg), 1950-2350mL fluid (or per MD) Nutrition diagnosis: Altered nutrition related lab values r/t DM dx AEB elevated blood glucose. Nutrition goals: -PO intake =/>75% meals -Meet fluid needs without fluid overload -Dry weight stable DHS Recommendations/Interventions: -Recommend continue current diet. Will continue to honor food preferences within diet restrictions. -RD will follow-up within 7 days.
--- NOTE | 2021-02-08 18:32 | NUR ---
PT RESTING IN BED WITH EYES OPEN CALL LIGHT IN REACH WILL MONITER
--- NOTE | 2021-02-08 20:00 | NUR ---
PATIENT RECEIVED SITTING UP IN WHEELCHAIR. ASSESSMENT & VITAL SIGNS DONE. PATIENT HAS SALAD SPEECH. WRITES NEEDS ON TABLET. BED LOW. ALARM ON. CALL LIGHT & WATER WITHIN REACH. WILL CONTINUE TO MONITOR.
[2021-02-08 21:13] VITALS: BP 140/69
--- NOTE | 2021-02-09 00:35 | NUR ---
PATIENT ALARM SOUNDING. PATIENT SITTING ON SIDE OF BED. PATIENT STANDBY ASSIST INTO WHEELCHAIR. PATIENT PROPELLED INTO BATHROOM. VOID ONLY. RETURNED TO LOW BED. ALARM ON. CALL LIGHT WITHIN REACH. WILL CONTINUE TO MONITOR.
--- NOTE | 2021-02-09 03:57 | NUR ---
PATIENT EYES CLOSED. RESPIRATIONS 18 & EVEN. BED LOW. ALARM ON. CALL LIGHT WITHIN REACH. WILL CONTINUE TO MONITOR.
--- NOTE | 2021-02-09 05:44 | NUR ---
I have reviewed this patient and I concur with the Shift Assessment completed by the Licensed Practical Nurse today this shift.
[2021-02-09 07:28] VITALS: BP 136/61
--- NOTE | 2021-02-09 09:00 | NUR ---
HE TOOK HIS MEDICATIONS WITHOUT ANY PROBLEMS. HE IS WRITTEN THINGS DOWN, BUT IT IS LIKE HIS SPOKEN WORDS. I TOOK HIM TO THE BATHROOM USING THE WHEELCHAIR. THE CALL LIGHT IS WITHIN REACH AND THE BED ALARM IS ON.
--- NOTE | 2021-02-09 19:22 | NUR ---
PATIENT RECEIVED SITTING UP IN BED. ASSESSMENT & VITAL SIGNS DONE. NO C/O PAIN OR DISTRESS. BED LOW. ALARM ON. CALL LIGHT WITHIN REACH. WILL CONTINUE TO MONITOR.
[2021-02-09 20:00] VITALS: BP 131/62
--- NOTE | 2021-02-10 01:27 | NUR ---
I have reviewed this patient and I concur with the Shift Assessment completed by the Licensed Practical Nurse today this shift.
[2021-02-10 06:37] VITALS: BP 141/63
--- NOTE | 2021-02-10 07:25 | NUR ---
PT IS RESTING IN BED WITH EYES OPEN. RESPIRATIONS ARE EVEN AND UNLABORED. PT WITH APHASIA AND WORD SALAD. PT COMMUNICATES WITH HAND LANGUAGE AND WRITING. PT DENIES PRESENCE OF PAIN/N/V AT THIS TIME. NO APPARENT S/S OF DISTRESS NOTED. ALL FALL PRECAUTIONS IN PLACE. INCENTIVE SPIROMETER WITHIN REACH AND ENCOURAGED. PT ASSISTED TO BR WITH MINIMAL ASSIST AND WHEELCHAIR ESCORT. PT WITH SMALL VOID. PT ASSISTED BACK TO BED POST VOID PER REQUEST. BED IS IN THE LOWEST POSITION. CALL LIGHT AND BEDSIDE TABLE ARE WITHIN REACH. SIDE RAILS X 2. PT DENIES FURTHER NEEDS. WILL CONT TO MONITOR.
--- NOTE | 2021-02-10 15:35 | NUR ---
SITTING UP IN WHEELCHAIR VISITING WITH FAMILY. DENIES NEEDS
[2021-02-10 19:00] VITALS: BP 149/74
--- NOTE | 2021-02-10 19:35 | NUR ---
PATIENT RECEIVED SITTING UP IN BED. ASSESSMENT & VITAL SIGNS DONE. NO C/O PAIN OR DISTRESS. CALL LIGHT & WATER WITHIN REACH. ALARM ON. WILL CONTINUE TO MONITOR.
--- NOTE | 2021-02-11 03:11 | NUR ---
I have reviewed this patient and I concur with the Shift Assessment completed by the Licensed Practical Nurse today this shift.
[2021-02-11 07:09] LABS: BASOPHILS 1.4 % (0-2); EOSINOPHILS 6.6 % (0-7); HEMATOCRIT 39.4 % (42.0-54.0); HEMOGLOBIN 13.5 g/dL (13.5-17.5); LYMPHOCYTES 31.3 % (15-50); MCH 30.1 pg (26.0-34.0); MCHC 34.2 g/dL (31.0-37.0); MCV 88.1 fL (80.0-100.0); MEAN PLATELET VOLUME 8.8 fL (7.4-10.4); NEUTROPHILS 51.7 % (40-80); PLATELET COUNT 285 10x3/uL (130-400); RBC 4.47 10x6/uL (4.20-6.10); RDW 14.3 % (11.5-14.5); WBC 6.7 10x3/uL (4.8-10.8)
--- NOTE | 2021-02-11 07:35 | NUR ---
PT RESTING IN BED WITH EYES OPEN CALL LIHG IN REACH WILL MONITER
[2021-02-11 07:36] LABS: ANION GAP 17.5 mmol/L (8-16); CALCIUM 9.7 mg/dL (8.5-10.1); CARBON DIOXIDE 21.9 mmol/L (21.0-32.0); CREATININE - SERUM 1.6 mg/dL (0.6-1.3); POTASSIUM - SERUM 4.4 mmol/L (3.5-5.1)
[2021-02-11 08:10] VITALS: BP 114/60
--- NOTE | 2021-02-11 15:28 | NUR ---
REFERRL HAS BEEN FAXED , WAITING ON INSURANCE. WILL CONTINUE TO FOLLOW WITH PATIENT.
--- NOTE | 2021-02-11 18:17 | NUR ---
PT RESTING IN BED WITH EYES OPEN CALL LIGHT IN REACH WILL MONITER
--- NOTE | 2021-02-11 19:00 | NUR ---
RECEIVED SHIFT REPORT FROM NICOL TA LPN, INFORMED PT THAT I WILL BE BACK SHORTLY TO DO ASSESSMENT, PT VERBALIZES UNDERSTANDING, DENIES NEEDS AT THIS TIME
--- NOTE | 2021-02-11 21:21 | NUR ---
ASSESSMENT PER FLOW SHEET, VS OBTAINED PER BINDING PRINTER, ADM MEDS PER MD ORDERS, SEE EMAR, PT DENIES NEEDS OR PAIN, FALL PRECAUTIONS IN PLACE
[2021-02-11 21:37] VITALS: BP 105/63
--- NOTE | 2021-02-11 22:30 | NUR ---
PT RESTING WITH EYES CLOSED, RESP QUIET, NO DISTRESS NOTED, LEFT UNDISTURBED AT THIS TIME, FALL PRECAUTIONS IN PLACE
--- NOTE | 2021-02-12 00:23 | NUR ---
PT RESTING WITH EYES CLOSED, RESP QUIET, NO DISTRESS NOTED, LEFT UNDISTURBED AT THIS TIME, FALL PRECAUTIONS IN PLACE
--- NOTE | 2021-02-12 02:18 | NUR ---
PT RESTING WITH EYES CLOSED, RESP QUIET, NO DISTRESS NOTED, LEFT UNDISTURBED AT THIS TIME, FALL PRECAUTIONS IN PLACE
[2021-02-12 07:59] VITALS: BP 125/65
[2021-02-12] MEDS ORDERED: ELIQUIS5 MG PO (08:06)
--- NOTE | 2021-02-12 16:23 | NUR ---
REFERRAL HAS BEEN FA[facility]ED TO [facility] NOT IN NETWORK WITH PATIENT INSURANCE. WILL CONTINUE TO FOLLOW WITH PATIENT.
--- NOTE | 2021-02-12 19:03 | NUR ---
BEDSIDE REPORT COMPLETE. RECEIVED PT LYING IN BED VISITING WITH FAMILY. ALERT WITH EXPRESSIVE APHASIA. WORD SALAD NOTED WELL. HEALED ABRAISION TO LEFT SIDE OF HEAD. NO IV OR OXYGEN NOTED. DENIES ANY NEEDS OR PAIN. NO DISTRESS NOTED. CALL LIGHT AND WATER WITHIN REACH. BRIANNA ALARM ON. CPOC
[2021-02-12 19:36] VITALS: BP 148/59
--- NOTE | 2021-02-13 05:21 | NUR ---
PT LYING IN BED ON RIGHT SIDE EYES CLOSED RESTING. RR EVEN AND UNLABORED. NO DISTRESS NOTED. NO ACUTE CHANGES IN CONDITION THIS SHIFT. CALL LIGHT AND WATER WITHIN REACH. BRIANNA ALARM ON.
[2021-02-13 07:38] VITALS: BP 106/56
--- NOTE | 2021-02-13 08:24 | NUR ---
PATIENT IN BED EATTING BREAKFAST. ALERT/ORIENT. CALL LIGHT WITHIN REACH. BED ALARM ON. VOICES NO NEEDS AT THIS TIME. WILL CONTINUE WITH PLAN OF CARE
[2021-02-13 09:41] LABS: BASOPHILS 1.5 % (0-2); HEMATOCRIT 40.1 % (42.0-54.0); HEMOGLOBIN 13.2 g/dL (13.5-17.5); LYMPHOCYTES 26.7 % (15-50); MCH 29.4 pg (26.0-34.0); MCHC 32.9 g/dL (31.0-37.0); MCV 89.4 fL (80.0-100.0); MEAN PLATELET VOLUME 8.9 fL (7.4-10.4); MONOCYTES 9.5 % (2-11); NEUTROPHILS 56.3 % (40-80); PLATELET COUNT 258 10x3/uL (130-400); RBC 4.49 10x6/uL (4.20-6.10); RDW 14.1 % (11.5-14.5); WBC 6.3 10x3/uL (4.8-10.8)
[2021-02-13 09:55] LABS: ANION GAP 16.8 mmol/L (8-16); CALCIUM 9.4 mg/dL (8.5-10.1); CARBON DIOXIDE 23.6 mmol/L (21.0-32.0); CREATININE - SERUM 1.4 mg/dL (0.6-1.3); POTASSIUM - SERUM 4.4 mmol/L (3.5-5.1)
--- NOTE | 2021-02-13 10:10 | NUR ---
PATIENT IN REHAB ROOM. 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 DENIES ANY PAIN/DISC AT THIS TIME.
--- NOTE | 2021-02-13 12:00 | NUR ---
I have reviewed this patient and I concur with the Shift Assessment completed by the Licensed Practical Nurse today this shift.
--- NOTE | 2021-02-13 15:50 | NUR ---
UPDATES FAXED WITH REQUESTING TO DISCHARGE TO A SNF. WILL CONTINUE TO FOLLOW WITH PATIENT. FAXED UPDATES FAXED TO , AUTH. # [id number] WITH FAX CONFORMATION RECIEVED
[2021-02-13 20:18] VITALS: BP 99/66
--- NOTE | 2021-02-13 22:41 | NUR ---
RESTING IN BED, NO DISTRESS NOTED, CONT TO HAVE WORD SALAD WITH SPEECH, COOPERATIVE WITH CARE, CONT TO MONITOR SAFETY
--- NOTE | 2021-02-14 07:28 | NUR ---
PT RESTING IN BED WITH EYES OPEN CALL LIGHT IN REACH WILL MONITER
[2021-02-14 08:02] VITALS: BP 120/63
[2021-02-14] MEDS ORDERED: CLONIDINE HCL0.1 MG PO (13:55)
--- NOTE | 2021-02-14 13:58 | NUR ---
INSURANCE HAS DENIED PATIENT DISCHARGING TO A SNF. PATIENT IS DICHARGING HOME WITH FAMILY. [facility] WILL PROVIDE THERAPY AT HOME. CASSANDRA WILL FOLLOW WITH PATIENT AT HOME AND HE WILL SEE DR. DHILLON NEEDED. [employer] HAS DELIVERED A ROLLING WALKER TO PATIENT. JINNY SIGNED, IMM SERVED AND EXPLIANED, ONE GIVEN TO PATIENT AND ONE FILED IN CHART. NO COMPARE DATA REVIEWED. DR. GUZMAN 03/27/21 @ 3:00, DR. VIERA/DENAE METCALF APRN 03/11/21 @ 1:45. DISCHARGE INSTRUCTIONS FAXED TO PCP, HOME HE[facility] , C[facility]ANDR[facility] , [facility] , AUTH. # [id number] AND REVIEWED WITH PATIENT AND DAUGHTER.
--- NOTE | 2021-02-14 16:11 | NUR ---
PT DISCHARGED HOME WITH FAMILY VIA WHEELCHAIR. DISCHARGE SUMMARY AND MEDS REVIEWED WITH FAMILY. MEDS CALLED TO [facility] ON [address] PT TOLER[facility] WELL[facility]
== END 2021-02-14 16:16 | disposition home health service (06) | DRG 57 ==
LOC: D.REHAB 13:28
PROVIDERS: ADMIT Emergency Medicine; ATTEND Emergency Medicine
DX: I69.30 Unspecified sequelae of cerebral infarction (principal); G81.91 Hemiplegia, unspecified affecting right dominant side; R47.01 Aphasia; E87.1 Hypo-osmolality and hyponatremia; I89.1 Lymphangitis; E78.5 Hyperlipidemia, unspecified; I10 Essential (primary) hypertension; K21.9 Gastro-esophageal reflux disease without esophagitis; D64.9 Anemia, unspecified; I25.10 Atherosclerotic heart disease of native coronary artery without angina pectoris; I65.29 Occlusion and stenosis of unspecified carotid artery; R41.89 Other symptoms and signs involving cognitive functions and awareness; R53.81 Other malaise; R26.2 Difficulty in walking, not elsewhere classified; R13.10 Dysphagia, unspecified; E87.8 Other disorders of electrolyte and fluid balance, not elsewhere classified; E11.65 Type 2 diabetes mellitus with hyperglycemia; I48.91 Unspecified atrial fibrillation; E03.9 Hypothyroidism, unspecified